=== PATIENT | female | born 1965 | race African-American/Black ===

== ENCOUNTER → 2020-06-29 | Emergency (ER) | payer OTHER ==
[~2020-06-29] VITALS: Ht 157.5 cm; Wt 99.8 kg
[~2020-06-29] MED LIST: MEDROLDOSEPACK PO; TOPROL XL25 MG PO; TRAMADOL 50 MG50 MG PO
[2020-06-29 11:30] VITALS: BP 194/86
== END ==
LOC: M.ERS 11:18
DX: S46.911A Strain of unspecified muscle, fascia and tendon at shoulder and upper arm level, right arm, initial encounter (principal); I10 Essential (primary) hypertension; Z79.899 Other long term (current) drug therapy; X50.0XXA Overexertion from strenuous movement or load, initial encounter; Y93.89 Activity, other specified; Y92.89 Other specified places as the place of occurrence of the external cause; Y99.8 Other external cause status